=== PATIENT | male | born 1955 | race Caucasian/White ===

== ENCOUNTER 2023-03-11 16:33 | Inpatient (IN) | payer MEDICARE, BC, SELFPAY ==
--- NOTE | ~2023-03-11 | CT_ITS ---
EXAMINATION: CT brain wo con DATE: 03/11/2023 16:44 INDICATION: 3 hours of headache, right-sided weakness and whole body tremors. TECHNIQUE: Computed tomography (CT) of the head was performed without intravenous contrast. Sagittal and coronal reconstructions were performed. The mA was adjusted according to patient size. Iterative reconstruction technique was employed. The dose-length product was 605.33 mGy-cm. COMPARISON: None FINDINGS: No acute intracranial hemorrhage, acute infarction or abnormal extra axial fluid collection. There is mild scattered white matter hypoattenuation consistent with chronic small vessel ischemic disease. Ventricles are normal and symmetric. No mass/mass effect. The orbits, paranasal sinuses and mastoid a ir cells are normal. IMPRESSION: 1. No acute intracranial process. 2. Mild scattered white matter hypoattenuation consistent with chronic small vessel ischemic disease. Reviewed, dictated and finalized at location A. IMPRESSION: 1. No acute intracranial process. 2. Mild scattered white matter hypoattenuation consistent with chronic small ve ssel ischemic disease.
--- NOTE | ~2023-03-11 | CT_ITS ---
Non-contrast CT scan of the Abdomen and Pelvis Clinical indication: Hematuria Technique: 2.5 mm axial scans were obtained through the abdomen and pelvis without intravenous or or al contrast. Dose reduction technique was used on this scan by utilizing automated exposure control a nd iterative reconstruction technique. The dose-length product (DLP) was 1433.39 mGy-cm. Findings: Images through the lung bases reveal 6 mm noncalcified right lower lobe pulmonary nodule ( axial image 26). There is additional 4 mm noncalcified left lower lobe pulmonary nodule (axial image 22). Additional calcified right lower lobe granuloma present. There are probable cystic masses along the right heart border, most compatible with pericardial/epicardial cysts. There is excreted contrast within the renal collecting systems, ureters, and bladder, which limits ev aluation for stones. No ana hydronephrosis. There is diffuse fatty infiltration of liver. The spleen, pancreas, gallbladder, and left adrenal gla nd appear normal. 2 cm low-density right adrenal nodule is consistent with adenoma. There are atheros clerotic calcifications of the aorta. There is no evidence of bowel obstruction. Normal appendix. Images through the pelvis were performed. There is no evidence of ascites or lymphadenopathy. No pelv ic mass identified. Impression: Excreted contrast material is present in the renal collecting systems, ureters, and bladder, presumab ly from recent outside contrast enhanced exam, which limits evaluation for stones. No hydronephrosis. Diffuse fatty infiltration of liver. 2 cm right adrenal adenoma. Probable right-sided epicardial/pericardial cyst, as noted above. 6 mm right lower lobe pulmonary nodule, and 4 mm left lower lobe pulmonary nodule. According to Fleis chner Society criteria, for a low-risk patient, no further follow-up required. For a high-risk patien t, 12 month follow-up CT should be considered. Reviewed, dictated and finalized at location M. Impression: Excreted contrast material is present in the renal collecting systems, ureters, and bladder, presumably from recent outside contrast enhanced exam, which limi ts evaluation for stones. No hydronephrosis. Diffuse fatty infiltration of liver. 2 cm right adrenal adenoma. Probable right-sided epicardial/pericardial cyst, as noted above. 6 mm right lower lobe pulmonary nodule, and 4 mm left lower lobe pulmonary nodu le. According to Fleischner Society criteria, for a low-risk patient, no furthe r follow-up required. For a high-risk patient, 12 month follow-up CT should be considered.
--- NOTE | ~2023-03-11 | XR_ITS ---
XR chest 1V portable DATE: 03/11/2023 17:03 INDICATION: Sudden onset of mid chest pain, left arm pain TECHNIQUE: Portable upright AP chest on 03/07/2023 at 1659 hours COMPARISON: None FINDINGS: Normal heart size. No hilar or mediastinal enlargement. No pulmonary infiltrate or consolid ation, pleural effusion or pulmonary vascular congestion or pneumothorax. Degenerative spurring of the thoracic spine. IMPRESSION: No active cardiopulmonary disease Reviewed, dictated and finalized at location B.
--- NOTE | ~2023-03-11 | US_ITS ---
Procedure: Duplex Doppler examination of the bilateral carotids. Indication: Neurologic symptoms Technique: Real time, color-flow and pulse wave Doppler examination of the bilateral carotids was performed. Findings: Petty scale ultrasonography of the right neck demonstrated no significant plaque. There was demonstrat ion of normal color-flow and Doppler waveforms within the right common, internal and external carotid arteries. The peak systolic velocities in the right common, internal and external carotid arteries w ere demonstrated to be 128 cm/sec, 56 cm/sec and 133 cm/sec respectively. The right ICA/CCA ratio was 0.4.The proximal right internal carotid artery demonstrates 0% stenosis relative to the normal dista l artery lumen diameter. Petty scale sonography of the left neck demonstrated no significant plaque. There was demonstration of normal color-flow and wave forms within the left common, internal and external carotid arteries. The peak systolic velocities in the left common, internal and external carotid arteries were demonstrate d to be 135cm/sec, 77 cm/sec and 89 cm/sec respectively. The left ICA/CCA ratio was 0.6. The proximal left internal carotid artery demonstrates 0% stenosis relative to the normal distal artery lumen bev meter. There was antegrade flow demonstrated in the bilateral vertebral arteries. Impression: No hemodynamically significant stenosis of the bilateral internal carotid arteries. Antegrade flow in the bilateral vertebral arteries. Note: The methodology used is an indirect measurement validated against a direct method (such as the NASCET criteria) that compares diameters at the stenosis to the distal ICA. Reviewed, dictated and finalized at location . Impression: No hemodynamically significant stenosis of the bilateral internal carotid arter ies. Antegrade flow in the bilateral vertebral arteries. Note: The methodology used is an indirect measurement validated against a direct meth od (such as the NASCET criteria) that compares diameters at the stenosis to the distal ICA.
--- NOTE | ~2023-03-11 | CT_ITS ---
CT ANGIOGRAM NECK AND HEAD History: Altered mental status. Technique: Serial spiral axial images through the head and neck were obtained during arterial phase I V injection of 100 cc of Omnipaque 350. 3-D postprocessing and MIP images were then reconstructed on the remote workstation. Dose reduction technique was used on this scan by utilizing automated exposur e control and iterative reconstruction technique. The dose-length product (DLP) was 1244.02 mGy-cm. CTA neck findings: Bilateral vertebral arteries are patent.] Vertebral artery is relatively hypoplas tic. Bilateral common carotid, internal carotid, and external carotid arteries are patent. No large v essel occlusion. No stenosis or aneurysm. The proximal right internal carotid artery demonstrates 0% stenosis relative to the normal distal artery lumen diameter. The proximal left internal carotid chava ry demonstrates 0% stenosis relative to the normal distal artery lumen diameter. CTA head findings: Distal vertebral arteries, basilar artery, and posterior cerebral arteries are pat ent. Distal internal carotid arteries, middle cerebral arteries, and anterior cerebral arteries are p atent. No large vessel occlusion. No stenosis or aneurysm. Impression: No significant abnormality. Reviewed, dictated and finalized at location . Impression: No significant abnormality.
--- NOTE | ~2023-03-11 | MR_ITS ---
EXAMINATION: MR brain/brain stem wo/w con DATE: 03/12/2023 08:24 INDICATION: Stroke. Altered mental status. TECHNIQUE: Magnetic resonance imaging (MRI) of the brain and brainstem was performed without and with 20 mL Multihance intravenous contrast. Sequences included sagittal and axial T1-weighted SE, axial d iffusion-weighted FS SE, axial 3D SWAN, axial T2-weighted FLAIR, and axial T2-weighted FSE. Postcontr ast axial and coronal T1-weighted SE was obtained. Apparent diffusion coefficient (ADC) maps were cre ated. COMPARISON: Head CT and CT angiogram. 03/11/2023 FINDINGS: There are no areas of restricted diffusion to suggest acute infarction. No intracranial hemorrhage or abnormal intracranial mass lesion.There are a few scattered tiny foci of nonspecific increased T2-we ighted signal intensity in the cerebral white matter, predominantly involving the deep and periventri cular white matter which is within normal limits for age. There are no intraparenchymal signal abnorm alities seen on the other pulse sequences. The ventricles are symmetric and normal in size. There are no abnormal extra-axial fluid collections. Flow voids are seen in the cerebral arteries on the T2-we ighted sequences consistent with their expected patency. Left vertebral artery is dominant. Visualize d orbits and soft tissues are unremarkable. There are no areas of abnormal enhancement on the post co ntrast images. IMPRESSION: 1. Normal for age brain MR. No acute intracranial process. Reviewed, dictated and finalized at location A.
--- NOTE | 2023-03-11 16:36 | ECG_ITS ---
Measurements Intervals [place] Rate: 92 P: 19 CA: 185 QRS: -5 QRSD: 104 T: 57 QT: 323 QTc: 401 Interpretive Statements SINUS RHYTHM INCOMPLETE RIGHT BUNDLE BRANCH BLOCK BASELINE WANDER- V3 NO PREVIOUS ECG AVAILABLE FOR COMPARISON Electronically Signed On 03-11-2023 16:52:33 CDT by Usman Hall D.O.
[2023-03-11 16:38] LABS: Glucose Point of Care 121 mg/dl (65-105)
[2023-03-11 16:45] LABS: Basophils Absolute Auto 0.1 K/mm3 (0.0-0.1); Basophils Percent Auto 0.5 % (0.2-1.2); Eosinophils Absolute Auto 0.1 K/mm3 (0-0.3); Eosinophils Percent Auto 1.5 % (0-4.4); Hematocrit 39.6 % (42.0-52.0); Hemoglobin 14.2 g/dL (14.0-18.0); Immature Granulocyte Absolute 0.02 K/mm3 (0.00-0.031); Immature Granulocyte Percent A 0.2 % (0-0.5); Lymphocytes Absolute Auto 1.08 K/mm3 (0.9-3.2); Lymphocytes Percent Auto 11.4 % (18.3-44.2); Mean Corpuscular HGB Conc 35.9 g/dl (32-36); Mean Corpuscular Hemoglobin 30.9 pg (26-34); Mean Corpuscular Volume 86.3 fl (80-100); Mean Platelet Volume 9.1 fl (7.4-10.4); Monocytes Absolute Auto 0.9 K/mm3 (0.1-0.6); Monocytes Percent Auto 9.4 % (2.6-8.5); Neutrophils Absolute Auto 7.3 K/mm3 (1.3-6.7); Platelet Count Result 239 k/mm3 (150-375); Red Blood Count 4.59 M/mm3 (4.6-6.20); Red Cell Distribution Width 12.9 % (11.5-14.5); White Blood Count 9.5 K/mm3 (4.5-10.0)
[2023-03-11 16:49] VITALS: BP 169/77; PULSE 100; RESP 14; TEMP 38; O2SAT 100
[2023-03-11 16:56] LABS: Partial Thromboplastin Time 28.2 SECONDS (22.3-36.8); Prothrombin Time 13.4 Seconds (11.1-14.7)
--- NOTE | 2023-03-11 17:02 | ED.AMS ---
HPI - Altered Mental Status General Chief Complaint: Altered Mental Status Stated Complaint: altered mental status Time Seen by Provider: 03/11/23 16:44 History of Present Illness HPI narrative: 67-year-old male presented to the emergency department for evaluation of altered mental status. Patient reports he had a normal morning this morning and patient took his to the doctor's office at 2 PM. Patient was waiting in the waiting room when he became more agitated and needed to go wait in the car. went to go check on the patient approximately 4 PM after her doctor's appointment and patient was altered and agitated so she brought him to the emergency department for evaluation. Patient arrived as a code stroke. Upon arrival to the ED patient had no focal deficit no slurred speech but did have altered mental status and was very jittery. Patient denied any pain numbness or weakness. Patient states he was having some tingling in his left arm but denied any chest pain or shortness of breath. Patient does have a prior history of prostatectomy back in April Related Data Home Medications Medication Instructions Recorded Confirmed aspirin 81 mg capsule 81 mg PO DAILY 03/11/23 03/11/23 hydrochlorothiazide 25 mg tablet 25 mg PO DAILY 03/11/23 03/11/23 lisinopril 10 mg tablet 10 mg PO DAILY 03/11/23 03/11/23 niacin 50 mg tablet 50 mg PO DAILY 03/11/23 03/11/23 omega-3 fatty acids 1,000 mg PO DAILY 03/11/23 03/11/23 omeprazole 20 mg capsule,delayed 20 mg PO DAILY 03/11/23 03/11/23 release Allergies Allergy/AdvReac Type Severity Reaction Status Date / Time No Known Allergies Allergy Verified 03/11/23 16:47 Review of Systems Review of Systems: All systems reviewed & are unremarkable except as noted in HPI and below PMFSH Social History Social History Smoking status: Never smoker Exam Narrative: APPEARANCE: Well appearing, no pain, no distress, well-nourished. HEAD: normocephalic, atraumatic. EYES: PERRLA/EOMI, conjunctivae clear. NOSE: Normal no drainage EARS:TMS clear with good light reflex. THROAT: Pharynx clear, no exudate. NECK: Supple. No adenopathy, no masses. RESPIRATORY: Airway patent, respirations nonlabored. Clear to auscultation bilaterally, no rales, rhonchi, wheezing. CARDIOVASCULAR: Regular rate and rhythm without murmurs rubs or gallops. ABDOMINAL: Soft, nontender, nondistended, normal bowel sounds MUSCULOSKELETAL: Moves all extremities. Strength/ROM intact, No edema, No calf tenderness. NEURO: Patient was alert and oriented but was very jittery and did have some mild drift of the left arm. No other focal deficit. Patient had ataxia and decreased coordination in all extremities with no focal deficit SKIN: Warm, dry. Normal Color Course Course Emergency Course: 59-year-old male presented emergency department for evaluation of altered mental status and increased agitation and tenderness. Patient had no focal deficit on exam. Head CT was negative. CTA showed no acute or normality. UA was concerning for infection. Discussed case with neurology and they agree with the plan to work-up for metabolic or infectious etiology. Patient denies any neck or back pain and had no evidence of meningitis. Patient had abdominal CTs since he did have a history of kidney stones. No kidney stones or hydronephrosis were noted. I discussed the case with the hospitalist and patient was stable for admission. Prior to going to the floor patient's fever was improved and patient was closer to his baseline. Ataxia was resolved and patient had no drainage. Patient's fever was treated with Tylenol and ibuprofen p.o. and patient's UTI was treated with Rocephin. Blood cultures were ordered and urine culture is pending. Vital Signs Vital signs: Vital Signs Temperature 100.4 F H 03/11/23 16:49 Pulse Rate 100 03/11/23 16:49 Respiratory Rate 14 03/11/23 16:49 Blood Pressure 169/77 H 03/11/23 16:49 Puls
[2023-03-11 17:08] LABS: Troponin I < 0.012 ng/mL (0.000-0.034)
[2023-03-11 17:13] LABS: Potassium 3.4 mmol/L (3.4-5.0)
[2023-03-11 17:14] LABS: Alanine Aminotransferase 40 U/L (6-50); Albumin Level 4.7 g/dL (3.5-5.1); Alkaline Phosphatase 70 U/L (38-126); Anion Gap 8 mmol/L (8-16); Aspartate Amino Transferase 32 U/L (17-59); Bilirubin,Total 1.1 mg/dL (0.2-1.3); Blood Urea Nitrogen 20 mg/dL (9-20); Calcium 9.5 mg/dL (8.4-10.2); Carbon Dioxide 29 mmol/L (22-30); Chloride 101 mmol/L (98-107); Estimated Glomerular Filt Rate > 60; Glucose 124 mg/dL (65-110); Sodium 138 mmol/L (137-145)
[2023-03-11 17:35] VITALS: BP 167/78; PULSE 94; RESP 22; TEMP 38.6; O2SAT 100
[2023-03-11] MEDS: SODIUM CHLORIDE 0.9% IV 1,000 ML 999 ML IV CONT (17:37)
[2023-03-11] MEDS: ACETAMINOPHEN 500 MG TABLET 1000 MG PO (17:38)
[2023-03-11 17:57] LABS: Appearance Urine Clear (Clear); Bacteria Urine 3+ /hpf; Bilirubin Urine Negative (Negative); Blood Urine 2+ (Negative); Color Urine Yellow (Yellow); Glucose Urine UA Negative (Negative); Ketones Urine Negative (Negative); Leukocyte Esterase Ur 1+ LEU/UL (Negative); Nitrate Urine Negative (Negative); Non Pathogenic Casts 0-2; Protein Urine 1+ mg/dL (Negative); RBC Urine 21-50 /hpf (0-2); Specific Grav Ur 1.019 (1.001-1.035); Squamous Epithelial Cell Urine None seen /hpf (Few); WBC Urine 21-50 /hpf; pH Urine 8.5 (5.0-9.0)
[2023-03-11 18:32] LABS: Add Urine Microscopic? YES
[2023-03-11 18:55] VITALS: BP 155/83; PULSE 85; RESP 20; O2SAT 99
[2023-03-11 19:00] VITALS: TEMP 37.9
[2023-03-11] MEDS: IBUPROFEN 400 MG TABLET 800 MG PO (19:00)
[2023-03-11 19:33] LABS: Lactic Acid Reflex 1.2 mmol/L (0.7-2.0); Magnesium 1.6 mg/dL (1.6-2.3)
[2023-03-11 20:41] LABS: Thyroid Stimulating Hormone Reflex 0.995 uIU/mL (0.465-4.68)
[2023-03-11 20:43] LABS: Procalcitonin 0.1 ng/mL
[2023-03-11 22:00] VITALS: BP 155/71; PULSE 81; RESP 16; TEMP 37.1; O2SAT 97
[2023-03-12] VITALS (11 sets, daily range): BP systolic 124–161; BP diastolic 47–69; PULSE 67–88; RESP 16–18; TEMP 36.8–38.4; O2SAT 97–100
--- NOTE | 2023-03-12 00:52 | PM.IMHP ---
H&P: HPI History of Present Illness Date/Time: 03/11/23 19:30 Chief Complaint: Weakness and confusion. Narrative: This is a pleasant 67-year-old male with history of prostate cancer status post prostatectomy, kidney stones, hypertension, and dyslipidemia who presented to the emergency department via private vehicle for evaluation of weakness and confusion. The patient provides the following history. This morning he spent a couple of hours pulling weeds in the yard. Not long thereafter he started to feel ?rough? with generalized malaise and he drank some water since he had been working in the heat. He then drove his to a doctor's appointment in [place] and she indicates that he seemed to be a bit agitated and irritable while in the waiting room. She was called back for her appointment and at that time the patient started to feel hot and weak so he went to the car and sat in the air conditioning. When she returned to the car, the patient seemed confused and he reported that he felt weak when walking, more so in the left leg in addition to some mild tingling in the left arm. He was triaged as a code stroke on arrival to the ER and brain CT did not show any acute findings. He was febrile on arrival with a temperature of 101.4? F. Lactic acid, CMP, and CBC were unremarkable. Urine was positive for 1+ leukocyte esterase, 21 to 50 wbc's, and 3+ bacteria. With further questioning he admits to having dysuria the last couple of days as well as a decreased appetite. He was started on ceftriaxone and he is being admitted in this setting for further treatment and evaluation. Currently he reports feeling much better. He denies headache, neck ache, sinus congestion, sore throat, cough, chest pain, palpitations, sensations of racing heart, vomiting, and diarrhea. He also denies vertigo, visual changes, facial droop, difficulty speaking and swallowing, current paresthesias, and focal weakness. Review of Systems Review of Systems: Twelve systems were reviewed and are negative except for as per HPI. [facility] Past Medical History Medical History (Updated 03/12/23 @ 13:33 by Etta Ramirez PA-C) Dyslipidemia Hypertension Kidney stones Obstructive sleep apnea Prostate cancer Surgical History Surgical History (Updated 03/12/23 @ 13:33 by Etta Ramirez PA-C) History of prostatectomy Family History Family History Other Hypertension Social History Social History (Updated 03/12/23 @ 13:34 by Etta Ramirze PA-C) Social History: Surrogate medical decision maker: Chris Akins, spouse. Code status: Full code. Smoking status: Never smoker Living arrangements: with family Occupation/Education: retired Meds Home Medications and Allergies Home Medications Medication Instructions Recorded Confirmed Type aspirin 81 mg capsule 81 mg PO DAILY 03/11/23 03/11/23 History hydrochlorothiazide 25 mg tablet 25 mg PO DAILY 03/11/23 03/11/23 History lisinopril 10 mg tablet 10 mg PO DAILY 03/11/23 03/11/23 History niacin 50 mg tablet 50 mg PO DAILY 03/11/23 03/11/23 History omega-3 fatty acids 1,000 mg PO DAILY 03/11/23 03/11/23 History omeprazole 20 mg capsule,delayed 20 mg PO DAILY 03/11/23 03/11/23 History release Allergies Allergy/AdvReac Type Severity Reaction Status Date / Time No Known Allergies Allergy Verified 03/11/23 16:47 Vital Signs Vital Signs - 24 hr 03/11/23 16:49 03/11/23 17:35 03/11/23 18:55 Temperature 100.4 F H 101.4 F H Pulse Rate 100 94 85 Respiratory Rate 14 22 H 20 Blood Pressure 169/77 H 167/78 H 155/83 H Pulse Oximetry 100 100 99 03/11/23 19:00 03/11/23 22:00 Temperature 100.3 F H 98.7 F Pulse Rate 81 Respiratory Rate 16 Blood Pressure 155/71 H Pulse Oximetry 97 Exam Narrative: General: Mildly ill-appearing gentleman in the semi-[place] position in bed. Weight: 112.4 kg. HEENT: PERREstrada, EOMI. Sc
--- NOTE | 2023-03-12 00:58 | ECHO_ITS ---
Patient Info Name: Hamilton Yanez Age: 67 years : 1955 Gender: Male Ht: 72 in Wt: 247 lbs BSA: 2.42 m2 HR: 71 bpm BP: 155 / 71 mmHg Heart Rhythm: Sinus Rhythm Technical Quality: Good Exam Date: 03/12/2023 11:34 AM Exam Location: [facility] Patient Status: Inpatient Admit Date: 03/12/2023 Staff Ordering Physician: Etta Ramirez PA-C Senior Online Marketing Manager: Adama Salazar RDCS Attending Provider: Wyatt Lomeli MD Referring Physician: Ashley RINCON; Exam Type: CA echo doppler color flow Study Info Indications - neurologic symptoms/htn Complete two-dimensional, color flow and Doppler transthoracic echocardiogram is performed. Summary 1. Complete two-dimensional, color flow and Doppler transthoracic echocardiogram is performed. 2. Left ventricular chamber dimension is normal. 3. Left ventricular systolic function is normal, estimated at 65-70%. 4. There is mildly increased left ventricular wall thickness. 5. The left ventricular diastolic function is grade I diastolic dysfunction. 6. Right ventricular systolic function is normal. 7. There is mild mitral valve regurgitation. 8. There is mild tricuspid valve regurgitation. Left Ventricle Left ventricular chamber dimension is normal. Left ventricular systolic function is normal, estimated at 65-70%. There is mildly increased left ventricular wall thickness. The left ventricular diastolic function is grade I diastolic dysfunction. Right Ventricle Right ventricular chamber dimension is normal. Right ventricular systolic function is normal. Left Atria Left atrial chamber dimension is normal. Right Atria Right atrial chamber dimension is normal. Atrial Septum Interatrial septum not well visualized. Aortic Valve The aortic valve is trileaflet. There is mild aortic valve sclerosis. There is no aortic valve stenosis. There is no aortic valve regurgitation. Pulmonic Valve The pulmonic valve is not well visualized. There is no pulmonic regurgitation. Mitral Valve There is mild mitral valve regurgitation. The mitral valve annulus is mildly calcified. Tricuspid Valve There is mild tricuspid valve regurgitation. Pericardium/Pleural The pericardium appears epicardial fat pad. There is no pericardial effusion. Inferior Vena Cava Inferior vena cava is not well visualized. Aorta The aortic root size at the sinus of Valsalva is normal. Left Ventricular Outflow Tract Name Value Normal LVOT 2D LVOT Diameter 2.0 cm LVOT Doppler LVOT Peak Gradient 4 mmHg LVOT Mean Gradient 2 mmHg LVOT VTI 22 cm LVOT VTI/AV VTI Ratio 0.9 LVOT Stroke Volume 72 ml LVOT CO 5.6 l/min LVOT CI 2.3 l/min/m2 Pulmonic Valve Name Value Normal RVOT Doppler RVOT Peak Gradient
[2023-03-12] MEDS: SODIUM CHLORIDE 0.9% IV 1,000 ML 100 ML IV CONT (02:29)
[2023-03-12 06:04] LABS: Hematocrit 38.2 % (42.0-52.0); Hemoglobin 13.3 g/dL (14.0-18.0); Mean Corpuscular HGB Conc 34.8 g/dl (32-36); Mean Corpuscular Hemoglobin 30.8 pg (26-34); Mean Corpuscular Volume 88.4 fl (80-100); Mean Platelet Volume 9.4 fl (7.4-10.4); Platelet Count Result 209 k/mm3 (150-375); Red Blood Count 4.32 M/mm3 (4.6-6.20); Red Cell Distribution Width 12.8 % (11.5-14.5)
[2023-03-12 06:09] LABS: Anion Gap 9 mmol/L (8-16); Blood Urea Nitrogen 19 mg/dL (9-20); Calcium 8.9 mg/dL (8.4-10.2); Carbon Dioxide 29 mmol/L (22-30); Chloride 102 mmol/L (98-107); Estimated CRCL calculation 81 ml/min; Estimated Glomerular Filt Rate > 60; Glucose 131 mg/dL (65-110); Potassium 3.2 mmol/L (3.4-5.0); Sodium 140 mmol/L (137-145)
[2023-03-12] MEDS: ASPIRIN 81 MG CHEWABLE TABLET PO (09:50)
[2023-03-12] MEDS: POTASSIUM CHLORIDE 20 MEQ PACKET (FOR LIQUID) 40 MEQ PO (09:50)
[2023-03-12] MEDS: PANTOPRAZOLE 40 MG TABLET PO (09:51)
[2023-03-12] MEDS: lisinopriL 10 MG TABLET PO (09:51)
[2023-03-12] MEDS: OMEGA 3 POLYUNSAT FATTY ACIDS 1 GM CAP PO (09:51)
--- NOTE | 2023-03-12 10:24 | PCOTNOTE ---
Attempted to see pt. for occupational therapy evaluation. Pt. and family currently conversing with hospitalist regarding plan of care. Unable to see pt. at this time. Nursing aware. Following.
--- NOTE | 2023-03-12 11:17 | WPDNEURCNPN ---
Assessment and Plan Assessment and plan (1) Confusion: Code(s): R41.0 - Disorientation, unspecified Status: Acute Plan 1. Considering the history of left-sided neuro symptomatology will obtain the MRI of the brain in addition to echocardiogram and Doppler study of the carotid and further recommendation accordingly at present the possible diagnosis of TIA Also will need to have the EEG. Consult date: 03/12/23 HPI: Hamilton Yanez is a 67 year old male Has been admitted to the hospital through the emergency room for the complaints of the change in the mental status. As per the information available on initial visit in the ER he was normal in the morning when he took his to the doctor's office And around 2:00 p.m. while he was waiting in the waiting room, he became extremely agitated and had to go and weight in his car, went to check on him approximately 4:00 p.m. when she found the patient agitated and with obvious change in mental status ,he was brought to the emergency room for evaluation with the code stroke and on initial evaluation he was not found to have any focal motor deficit or difficulties in his speech but extremely jittery ,did not complain of any weakness or numbness, he said that he had left upper extremity weakness but he gave no history of chest pain. he had been taking aspirin 81 mg daily with hydrochlorothiazide 25 mg daily lisinopril 10 mg daily, on initial evaluation in the emergency room CT scan of the head was negative with a bleed or space-occupying lesion, CTA revealed no vascular involvement, he was not found to have any renal pathology on CT scan of the abdomen as well, routine vital signs were normal except with blood pressure being 169/77, CBC was normal so as the BMP he was started on antibiotic, on evaluation he was found to have 2cm right adrenal adenoma and 6mm right lower lobe pulmonary nodule 4mm left lower lobe pulmonary nodule PMF Social History Social History Smoking status: Never smoker Meds Home Medications and Allergies Home Medications Medication Instructions Recorded Confirmed Type aspirin 81 mg capsule 81 mg PO DAILY 03/11/23 03/11/23 History hydrochlorothiazide 25 mg tablet 25 mg PO DAILY 03/11/23 03/11/23 History lisinopril 10 mg tablet 10 mg PO DAILY 03/11/23 03/11/23 History niacin 50 mg tablet 50 mg PO DAILY 03/11/23 03/11/23 History omega-3 fatty acids 1,000 mg PO DAILY 03/11/23 03/11/23 History omeprazole 20 mg capsule,delayed 20 mg PO DAILY 03/11/23 03/11/23 History release Allergies Allergy/AdvReac Type Severity Reaction Status Date / Time No Known Allergies Allergy Verified 03/11/23 16:47 Vital Signs Vital Signs - 24 hr 03/11/23 16:49 03/11/23 17:35 03/11/23 18:55 Temperature 38.0 C H 38.6 C H Pulse Rate 100 94 85 Respiratory Rate 14 22 H 20 Blood Pressure 169/77 H 167/78 H 155/83 H Pulse Oximetry 100 100 99 Oxygen Delivery 03/11/23 19:00 03/11/23 22:00 03/12/23 00:00 Temperature 37.9 C H 37.1 C Pulse Rate 81 67 Respiratory Rate 16 Blood Pressure 155/71 H Pulse Oximetry 97 Oxygen Delivery 03/11/23 20:30 03/12/23 04:00 03/12/23 06:00 Temperature 36.8 C Pulse Rate 71 79 Respiratory Rate 16 Blood Pressure 161/69 H Pulse Oximetry 100 Oxygen Delivery Room Air 03/12/23 09:50 03/12/23 10:43 Temperature Pulse Rate 88 Respiratory Rate Blood Pressure Pulse Oximetry Oxygen Delivery Room Air Results Labs 03/12/23 05:24 03/12/23 05:25 Labs: Short CBC 03/11/23 03/12/23 Range/Units 16:39 05:24 WBC 9.5 9.0 (4.5-10.0) K/mm3 Hgb 14.2 13.3 L (14.0-18.0) g/dL Hct 39.6 L 38.2 L (42.0-52.0) % Plt Count 239 209 (150-375) k/mm3 BMP 03/11/23 03/12/23 16:39 05:25 Sodium 138 140 Potassium 3.4 3.2 L Chloride 101 102 Carbon Dioxide 29 29 BUN 20 19 Creatinine 1.10 1.00 Glucose 124 H 131 H Calcium 9.5
--- NOTE | 2023-03-12 12:02 | PM.IMPN ---
Progress Note: A&P Assessment and Plan (1) Neurological symptoms: Code(s): R29.90 - Unspecified symptoms and signs involving the nervous system Status: Acute Assessment and Plan: The patient presented to the emergency department for evaluation of confusion. On arrival to the ED he mentions some tingling in the left arm weakness in the left leg and he was triaged as a code stroke. CTA of the head and neck and head CT did not show any acute findings. Continue neurologic checks q.4 hours. Brain MRI negative for acute intracranial process. He will be monitor on telemetry. Echocardiogram Ordered Carotid Doppler revealing no significant stenosis of the bilateral internal carotid arteries, antegrade flow in the bilateral vertebral arteries. (2) Urinary tract infection: Code(s): N39.0 - Urinary tract infection, site not specified Status: Acute Assessment and Plan: In the ED he spiked a temperature of 101.4? and it appears that he has urinary tract infection. Urine was positive for 1+ leukocyte esterase, 21 to 50 wbc's, and 3+ bacteria. He has been started on ceftriaxone. Blood and urine cultures are pending. (3) Confusion: Code(s): R41.0 - Disorientation, unspecified Status: Acute Assessment and Plan: Resolved Patient is no longer confused although he continues to have jerky movements as well as numbness and tingling that comes and goes on the left side of his body. Subjective Date/time seen: 03/12/23 12:02 Interval history: Patient in bed with and daughter at bedside. Patient is very restless although he answers my questions appropriately. He states that he has body aches from head to toe and is constantly fidgeting /moving around in the bed and he states that he has no control of this. He is very jerky movements. No family history of any neurological disorders such as MS ALS, seizure disorder Parkinson's. Review of Systems Review of Systems: All systems reviewed & are unremarkable except as noted in HPI and below Exam Narrative: GENERAL: Comfortable, no acute distress HENMT: moist mucous membranes EYES: EOM intact b/l NECK: no lymphadenopathy RESPIRATORY: clear to auscultation CARDIO: RRR GI: soft, nontender, bowel sounds present SKIN: no rashes EXTREMITIES: no edema, redness or tenderness NEURO: Upper and lower extremity strength 5/5, no past pointing present, no pronator drift, no facial asymmetry. Jerky movements and needed redirecting frequently. Objective Data Vital Signs Vital Signs: Vital Signs - 24 hr 03/11/23 16:49 03/11/23 17:35 03/11/23 18:55 Temperature 100.4 F H 101.4 F H Pulse Rate 100 94 85 Respiratory Rate 14 22 H 20 Blood Pressure 169/77 H 167/78 H 155/83 H Pulse Oximetry 100 100 99 Oxygen Delivery 03/11/23 19:00 03/11/23 22:00 03/12/23 00:00 Temperature 100.3 F H 98.7 F Pulse Rate 81 67 Respiratory Rate 16 Blood Pressure 155/71 H Pulse Oximetry 97 Oxygen Delivery 03/11/23 20:30 03/12/23 04:00 03/12/23 06:00 Temperature 98.2 F Pulse Rate 71 79 Respiratory Rate 16 Blood Pressure 161/69 H Pulse Oximetry 100 Oxygen Delivery Room Air 03/12/23 09:50 03/12/23 10:43 03/12/23 11:07 Temperature Pulse Rate 88 Respiratory Rate Blood Pressure Pulse Oximetry Oxygen Delivery Room Air Room Air Intake/Output Intake/Output: Intake & Output 03/09/23 03/10/23 03/11/23 03/12/23 23:59 23:59 23:59 23:59 Intake Total 1050 120 Output Total 450 Balance 1050 -330 Meds/Results Medications: Active Medications Generic Name Dose Route Start Last Admin Trade Name Freq PRN Reason Stop Dose Admin Acetaminophen 650 mg 03/12/23 00:58 Acetaminophen 325 Mg Tablet PO Q6H PRN Mild Pain (1-3) or Fever Aspirin 81 mg 03/12/23 08:00 03/12/23 09:50 Aspirin 81 Mg Chewable Tablet PO 81 mg DAILY@0800 [place] Administration Fish Oil 1
[2023-03-12] MEDS: LORazepam INJ (*CRX) 2 MG/ML VIAL 0.5 MG IV PUSH (12:42)
[2023-03-12] MEDS: NIACIN 50 MG TABLET PO (15:59)
[2023-03-12] MEDS: ACETAMINOPHEN 325 MG TABLET 650 MG PO (15:59)
[2023-03-12] MEDS: DOXYCYCLINE 100 MG/NS 100 ML 100 MG/100 ML BAG IVPB (19:50)
[2023-03-12 21:14] LABS: Glucose Point of Care 181 mg/dl (65-105)
[2023-03-13] VITALS (8 sets, daily range): BP systolic 135–165; BP diastolic 64–83; PULSE 77–90; RESP 16–24; TEMP 36.5–37.7; O2SAT 97–99
[2023-03-13] MEDS: LORazepam INJ (*CRX) 2 MG/ML VIAL 0.5 MG IV PUSH (03:43)
[2023-03-13 06:06] LABS: Basophils Percent Auto 0.4 % (0.2-1.2); Eosinophils Absolute Auto 0.1 K/mm3 (0-0.3); Eosinophils Percent Auto 0.7 % (0-4.4); Hematocrit 34.8 % (42.0-52.0); Hemoglobin 12.4 g/dL (14.0-18.0); Immature Granulocyte Absolute 0.03 K/mm3 (0.00-0.031); Immature Granulocyte Percent A 0.4 % (0-0.5); Lymphocytes Absolute Auto 0.87 K/mm3 (0.9-3.2); Lymphocytes Percent Auto 11.7 % (18.3-44.2); Mean Corpuscular HGB Conc 35.6 g/dl (32-36); Mean Corpuscular Hemoglobin 30.8 pg (26-34); Mean Corpuscular Volume 86.4 fl (80-100); Mean Platelet Volume 9.4 fl (7.4-10.4); Monocytes Absolute Auto 0.8 K/mm3 (0.1-0.6); Monocytes Percent Auto 10.4 % (2.6-8.5); Neutrophils Absolute Auto 5.7 K/mm3 (1.3-6.7); Neutrophils Percent Auto 76.4 % (45.5-73.1); Platelet Count Result 193 k/mm3 (150-375); Red Blood Count 4.03 M/mm3 (4.6-6.20); Red Cell Distribution Width 12.8 % (11.5-14.5); White Blood Count 7.4 K/mm3 (4.5-10.0)
[2023-03-13 06:22] LABS: Alanine Aminotransferase 27 U/L (6-50); Albumin Level 3.8 g/dL (3.5-5.1); Alkaline Phosphatase 48 U/L (38-126); Anion Gap 6 mmol/L (8-16); Aspartate Amino Transferase 25 U/L (17-59); Blood Urea Nitrogen 22 mg/dL (9-20); Calcium 8.8 mg/dL (8.4-10.2); Carbon Dioxide 26 mmol/L (22-30); Chloride 103 mmol/L (98-107); Creatine Kinase 72 U/L (55-170); Estimated CRCL calculation 89 ml/min; Estimated Glomerular Filt Rate > 60; Glucose 145 mg/dL (65-110); Lipase 115 U/L (23-300); Potassium 3.4 mmol/L (3.4-5.0); Sodium 135 mmol/L (137-145)
[2023-03-13 07:45] LABS: Glucose Point of Care 149 mg/dl (65-105)
--- NOTE | 2023-03-13 08:33 | PM.IMPN ---
Progress Note: A&P Assessment and Plan (1) Neurological symptoms: Code(s): R29.90 - Unspecified symptoms and signs involving the nervous system Status: Acute Assessment and Plan: The patient presented to the emergency department for evaluation of confusion. On arrival to the ED he mentions some tingling in the left arm weakness in the left leg and he was triaged as a code stroke. CTA of the head and neck and head CT did not show any acute findings. Continue neurologic checks q.4 hours. Brain MRI negative for acute intracranial process. He will be monitored on telemetry. Echocardiogram Ordered Summary ? 1. Complete two-dimensional, color flow and Doppler transthoracic echocardiogram is performed. ? 2. Left ventricular chamber dimension is normal. ? 3. Left ventricular systolic function is normal, estimated at 65-70%. ? 4. There is mildly increased left ventricular wall thickness. ? 5. The left ventricular diastolic function is grade I diastolic dysfunction. ? 6. Right ventricular systolic function is normal. ? 7. There is mild mitral valve regurgitation. ? 8. There is mild tricuspid valve regurgitation. Carotid Doppler revealing no significant stenosis of the bilateral internal carotid arteries, antegrade flow in the bilateral vertebral arteries. (2) Urinary tract infection: Code(s): N39.0 - Urinary tract infection, site not specified Status: Acute Assessment and Plan: In the ED he spiked a temperature of 101.4? and it appears that he has urinary tract infection. Urine was positive for 1+ leukocyte esterase, 21 to 50 wbc's, and 3+ bacteria. He has been started on ceftriaxone. Urine culture + for E-coli Blood cultures with NGTD (3) Confusion: Code(s): R41.0 - Disorientation, unspecified Status: Acute Assessment and Plan: Resolved -ataxic movement has resolved today after starting doxycycline. -EEG normal Plan If no fevers overnight and patients symptoms continue to improve then likely d/c home tomorrow. Serologies will take a week to result. Subjective Date/time seen: 03/13/23 08:33 Interval history: HPI obtained from chart: This is a pleasant 67-year-old male with history of prostate cancer status post prostatectomy, kidney stones, hypertension, and dyslipidemia who presented to the emergency department via private vehicle for evaluation of weakness and confusion.? The patient provides the following history. This morning he spent a couple of hours pulling weeds in the yard. Not long thereafter he started to feel ?rough? with generalized malaise and he drank some water since he had been working in the heat. He then drove his to a doctor's appointment in [place] and she indicates that he seemed to be a bit agitated and irritable while in the waiting room. She was called back for her appointment and at that time the patient started to feel hot and weak so he went to the car and sat in the air conditioning. When she returned to the car, the patient seemed confused and he reported that he felt weak when walking, more so in the left leg in addition to some mild tingling in the left arm. He was triaged as a code stroke on arrival to the ER and brain CT did not show any acute findings. He was febrile on arrival with a temperature of 101.4? F. Lactic acid, CMP, and CBC were unremarkable. Urine was positive for 1+ leukocyte esterase, 21 to 50 wbc's, and 3+ bacteria.? With further questioning he admits to having dysuria the last couple of days as well as a decreased appetite. He was started on ceftriaxone and he is being admitted in this setting for further treatment and evaluation. Currently he reports feeling much better. He denies headache, neck ache, sinus congestion, sore throat, cough, chest pain, palpitations, sensations of racing heart, vomiting, and diarrhea. He also denies vertigo, visual changes, facial droop, difficulty speaking and swallowing, cur
[2023-03-13] MEDS: PANTOPRAZOLE 40 MG TABLET PO (10:02)
[2023-03-13] MEDS: OMEGA 3 POLYUNSAT FATTY ACIDS 1 GM CAP PO (10:02)
[2023-03-13] MEDS: lisinopriL 10 MG TABLET PO (10:02)
[2023-03-13] MEDS: NIACIN 50 MG TABLET PO (10:02)
[2023-03-13] MEDS: ASPIRIN 81 MG CHEWABLE TABLET PO (10:02)
[2023-03-13] MEDS: DOXYCYCLINE 100 MG/NS 100 ML 100 MG/100 ML BAG IVPB ×2 (10:05→21:23)
--- NOTE | 2023-03-13 10:30 | WPDNEUROLOGY ---
Neurology EEG Report General Information Date of Study: 03/13/23 TEST eeg DIAGNOSIS History of confusion CONDITION OF RECORDING awake drowsy and sleep EEG NUMBER [id number] CLINICAL HISTORY patient was brought into the hospital with fever, confusion, agitation and weakness. EEG DESCRIPTION basic resting occipital frequency consists of well-organized low to medium voltage 9 to 11 hertz per 2nd alpha admixed with small amount of low-voltage 15 to 18 hertz per 2nd beta. Low-voltage beta activity seen diffusely admixed with waxing and waning posterior alpha rhythm during drowsiness. Bilateral symmetrical sleep activity seen during sleep with mixture of beta theta and alpha activity. Intermittent regular EKG artifact is also noted ,hyperventilation not done. Photic stimulation not done. Non paroxysmal. Nonfocal. Nonlateralizing. IMPRESSION Normal record
--- NOTE | 2023-03-13 11:56 | WPDNEUROPN ---
Subjective Date/time seen: 03/13/23 11:56 Interval history: follow-up for the admission with the complaints of disorientation and confusion, it generally nonfocal neurological examination, evaluation of continued down document negative x-ray of the chest, negative CT scan of the head, negative CTA of the head and neck, normal MRI of the brain, normal Doppler study of the carotids and normal EEG without any evidence of focal or diffuse slow activity and also without evidence of any paroxysmal discharge, on exam today patient is awake alert cooperative in no obvious acute distress with no focal motor deficit the question has been raised whether patient has had the encephalitis. Objective Data Vital Signs Vital Signs: Vital Signs - 24 hr 03/12/23 14:58 03/12/23 15:59 03/12/23 17:04 Temperature 38.4 C H 38.4 C H 37.7 C H Pulse Rate 85 Respiratory Rate 18 Blood Pressure 145/63 H Pulse Oximetry 99 Oxygen Delivery 03/12/23 16:59 03/12/23 16:00 03/12/23 20:00 Temperature 37.7 C H Pulse Rate 81 81 Respiratory Rate 18 Blood Pressure Pulse Oximetry 99 Oxygen Delivery Room Air 03/12/23 22:00 03/12/23 20:00 03/13/23 00:00 Temperature 37.1 C Pulse Rate 84 87 78 Respiratory Rate 16 Blood Pressure 124/47 L Pulse Oximetry 97 Oxygen Delivery 03/12/23 22:30 03/13/23 04:00 03/13/23 06:00 Temperature 37.7 C H Pulse Rate 80 84 Respiratory Rate 16 Blood Pressure 135/64 Pulse Oximetry 98 Oxygen Delivery CPAP 03/13/23 08:00 Temperature 36.8 C Pulse Rate 82 Respiratory Rate 22 H Blood Pressure 139/77 Pulse Oximetry 97 Oxygen Delivery Intake/Output Intake/Output: Intake & Output 03/10/23 03/11/23 03/12/23 03/13/23 23:59 23:59 23:59 23:59 Intake Total 1050 1180 570 Output Total 450 Balance 1050 730 570 Meds/Results Medications: Active Medications Generic Name Dose Route Start Last Admin Trade Name Freq PRN Reason Stop Dose Admin Acetaminophen 650 mg 03/12/23 00:58 03/12/23 15:59 Acetaminophen 325 Mg Tablet PO 650 mg Q6H PRN Administration Mild Pain (1-3) or Fever Aspirin 81 mg 03/12/23 08:00 03/13/23 10:02 Aspirin 81 Mg Chewable Tablet PO 81 mg DAILY@0800 [place] Administration Fish Oil 1 gm 03/12/23 09:00 03/13/23 10:02 [place] 3 Polyunsat Fatty Acids 1 Gm Cap PO 1 gm QAM [place] Administration Ceftriaxone Sodium 1 gm in 50 mls @ 100 mls/hr 03/12/23 19:00 03/12/23 19:20 Rocephin 1 Gm/Ns 50 Ml IVPB Infused Q24H [place] Infusion Doxycycline Hyclate 100 mg in 100 mls @ 100 mls/hr 03/12/23 21:00 03/12/23 20:50 Vibramycin 100 Mg/Ns 100 Ml IVPB Infused Q12HR [place] Infusion Lisinopril 10 mg 03/12/23 09:00 03/13/23 10:02 Lisinopril 10 Mg Tablet PO 10 mg DAILY [place] Administration Lorazepam 0.5 mg 03/12/23 15:50 03/13/23 03:43 Lorazepam Inj (*Crx) 2 Mg/Ml Vial IV PUSH 0.5 mg Q6H PRN Administration Anxiety Niacin 50 mg 03/12/23 09:00 03/13/23 10:02 Niacin 50 Mg Tablet PO 50 mg DAILY [place] Administration Pantoprazole Sodium 40 mg 03/12/23 09:00 03/13/23 10:02 Pantoprazole 40 Mg Tablet PO 40 mg QAM [place] Administration Perflutren Lipid Microsphere 0 ml 03/12/23 00:58 Perflutren Lipid Microspheres 1.5 Ml Vial Diluted To 10 Ml Total Volume IV PUSH 03/14/23 00:58 ONCE PRN adequate visualization Protocol Radiology Results: ITS Impressions Head CT 03/11/23 16:44 IMPRESSION: 1. No acute intracranial process. 2. Mild scattered white matter hypoattenuation consistent with chronic small vessel ischemic disease. Chest X-Ray 03/11/23 17:04 IMPRESSION: No active cardiopulmonary disease Head/Neck CTA 03/11/23 17:57 Impression: No significant abnormality. Abdomen/Pelvis CT 03/11/23 19:31 Impression: Excreted contrast material is present in the renal collecting systems, ureters, and bladder, presumably from recent ou
[2023-03-13] MEDS: cefTRIAXone 2 GM/NS 100 ML 2 GM/100 ML BAG IVPB (17:42)
[2023-03-14] VITALS: PULSE 72
[2023-03-14 04:00] VITALS: PULSE 83
[2023-03-14 06:00] VITALS: BP 156/81; PULSE 77; RESP 16; TEMP 36.4; O2SAT 97
[2023-03-14 07:22] LABS: Basophils Absolute Auto 0.1 K/mm3 (0.0-0.1); Basophils Percent Auto 0.9 % (0.2-1.2); Eosinophils Absolute Auto 0.2 K/mm3 (0-0.3); Eosinophils Percent Auto 2.3 % (0-4.4); Hematocrit 37.6 % (42.0-52.0); Hemoglobin 13.1 g/dL (14.0-18.0); Immature Granulocyte Absolute 0.02 K/mm3 (0.00-0.031); Immature Granulocyte Percent A 0.3 % (0-0.5); Lymphocytes Absolute Auto 1.67 K/mm3 (0.9-3.2); Lymphocytes Percent Auto 24.4 % (18.3-44.2); Mean Corpuscular HGB Conc 34.8 g/dl (32-36); Mean Corpuscular Hemoglobin 30.2 pg (26-34); Mean Corpuscular Volume 86.6 fl (80-100); Mean Platelet Volume 9.2 fl (7.4-10.4); Monocytes Absolute Auto 0.7 K/mm3 (0.1-0.6); Monocytes Percent Auto 10.7 % (2.6-8.5); Neutrophils Absolute Auto 4.2 K/mm3 (1.3-6.7); Neutrophils Percent Auto 61.4 % (45.5-73.1); Platelet Count Result 239 k/mm3 (150-375); Red Blood Count 4.34 M/mm3 (4.6-6.20); Red Cell Distribution Width 12.8 % (11.5-14.5); White Blood Count 6.8 K/mm3 (4.5-10.0)
[2023-03-14 07:42] LABS: Alanine Aminotransferase 28 U/L (6-50); Albumin Level 3.9 g/dL (3.5-5.1); Alkaline Phosphatase 51 U/L (38-126); Anion Gap 10 mmol/L (8-16); Aspartate Amino Transferase 28 U/L (17-59); Bilirubin,Total 0.7 mg/dL (0.2-1.3); Blood Urea Nitrogen 18 mg/dL (9-20); Carbon Dioxide 25 mmol/L (22-30); Chloride 104 mmol/L (98-107); Estimated CRCL calculation 81 ml/min; Estimated Glomerular Filt Rate > 60; Glucose 129 mg/dL (65-110); Potassium 3.5 mmol/L (3.4-5.0); Sodium 139 mmol/L (137-145)
[2023-03-14 08:02] VITALS: PULSE 76
[2023-03-14] MEDS: PANTOPRAZOLE 40 MG TABLET PO (09:16)
[2023-03-14] MEDS: DOXYCYCLINE 100 MG/NS 100 ML 100 MG/100 ML BAG IVPB (09:16)
[2023-03-14] MEDS: NIACIN 50 MG TABLET PO (09:16)
[2023-03-14] MEDS: OMEGA 3 POLYUNSAT FATTY ACIDS 1 GM CAP PO (09:16)
[2023-03-14] MEDS: lisinopriL 10 MG TABLET PO (09:16)
[2023-03-14] MEDS: ASPIRIN 81 MG CHEWABLE TABLET PO (09:16)
[2023-03-14 10:19] VITALS: O2SAT 98
[2023-03-14] MEDS: AMOXICILLIN/CLAVULANATE K 875-125 MG TAB 1 TABLET PO (10:21)
[2023-03-14] MEDS: hydroCHLOROthiazide 25 MG TABLET PO (10:28)
--- NOTE | 2023-03-14 11:16 | PM.DS ---
DS: Admitting Diagnosis Discharge Date March 14 Admitting Diagnosis Acute UTI DS: Discharge Diagnosis Discharge Diagnosis (1) Neurological symptoms: Code(s): R29.90 - Unspecified symptoms and signs involving the nervous system Status: Acute Assessment and Plan: The patient presented to the emergency department for evaluation of confusion. On arrival to the ED he mentions some tingling in the left arm weakness in the left leg and he was triaged as a code stroke. CTA of the head and neck and head CT did not show any acute findings. Continue neurologic checks q.4 hours. Brain MRI negative for acute intracranial process. He will be monitored on telemetry. Echocardiogram Ordered Summary ? 1. Complete two-dimensional, color flow and Doppler transthoracic echocardiogram is performed. ? 2. Left ventricular chamber dimension is normal. ? 3. Left ventricular systolic function is normal, estimated at 65-70%. ? 4. There is mildly increased left ventricular wall thickness. ? 5. The left ventricular diastolic function is grade I diastolic dysfunction. ? 6. Right ventricular systolic function is normal. ? 7. There is mild mitral valve regurgitation. ? 8. There is mild tricuspid valve regurgitation. Carotid Doppler revealing no significant stenosis of the bilateral internal carotid arteries, antegrade flow in the bilateral vertebral arteries. (2) Urinary tract infection: Code(s): N39.0 - Urinary tract infection, site not specified Status: Acute Assessment and Plan: In the ED he spiked a temperature of 101.4? and it appears that he has urinary tract infection. Urine was positive for 1+ leukocyte esterase, 21 to 50 wbc's, and 3+ bacteria. He has been started on ceftriaxone. Urine culture + for E-coli Blood cultures with NGTD (3) Confusion: Code(s): R41.0 - Disorientation, unspecified Status: Acute Assessment and Plan: Resolved -ataxic movement has resolved today after starting doxycycline. -EEG normal Plan If no fevers overnight and patients symptoms continue to improve then likely d/c home tomorrow. Serologies will take a week to result. DS: Summary Hospital Course Reason for hospitalization: Acute UTI, neurological symptoms Hospital Course: HPI obtained from chart: This is a pleasant 67-year-old male with history of prostate cancer status post prostatectomy, kidney stones, hypertension, and dyslipidemia who presented to the emergency department via private vehicle for evaluation of weakness and confusion.? The patient provides the following history. This morning he spent a couple of hours pulling weeds in the yard. Not long thereafter he started to feel ?rough? with generalized malaise and he drank some water since he had been working in the heat. He then drove his to a doctor's appointment in [place] and she indicates that he seemed to be a bit agitated and irritable while in the waiting room. She was called back for her appointment and at that time the patient started to feel hot and weak so he went to the car and sat in the air conditioning. When she returned to the car, the patient seemed confused and he reported that he felt weak when walking, more so in the left leg in addition to some mild tingling in the left arm. He was triaged as a code stroke on arrival to the ER and brain CT did not show any acute findings. He was febrile on arrival with a temperature of 101.4? F. Lactic acid, CMP, and CBC were unremarkable. Urine was positive for 1+ leukocyte esterase, 21 to 50 wbc's, and 3+ bacteria.? With further questioning he admits to having dysuria the last couple of days as well as a decreased appetite. He was started on ceftriaxone and he is being admitted in this setting for further treatment and evaluation. Currently he reports feeling much better. He denies headache, neck ache, sinus congestion, sore throat, cough, chest pain, palpitations, sensat
--- NOTE | 2023-03-14 11:56 | PC.NURSE ---
Pt discharging home with family. Pt is A&O4 this morning. Pt has participated and contributed in plan of care. Pt denies any pain at this time. Pt expresses no needs. Pt is compliant with care. Pt IV removed with tip intact. Pt tolerated well. Pt walked to car with family. Pt medications were transmitted over. Pt reports pharmacy sent notification of receiving prescription, filling initiated. Pt was monitored for any changes in status.
[2023-03-15 08:47] LABS: Lyme Disease Ab (IgM), Blot Negative (Negative); Lyme Disease Ab(IgG), Blot Negative (Negative)
[2023-03-15 14:13] LABS: West Nile Virus, IgM <0.90 index (<0.90)
== END 2023-03-14 11:58 | disposition home or self-care (01) | DRG 690 ==
LOC: ANHED 17:11 → ANH3MEDSUR 19:24
PROVIDERS: Internal Medicine Critical Care Medicine; Physician Assistant; Admitting Provider Family Medicine; Emergency Provider Emergency Medicine; PCP Family Medicine; Visit Provider Nurse Practitioner Acute Care
DX: N39.0 Urinary tract infection, site not specified (principal); B96.20 Unspecified Escherichia coli [E. coli] as the cause of diseases classified elsewhere; R41.0 Disorientation, unspecified; E78.5 Hyperlipidemia, unspecified; G47.33 Obstructive sleep apnea (adult) (pediatric); I10 Essential (primary) hypertension; Z87.442 Personal history of urinary calculi; Z90.79 Acquired absence of other genital organ(s); Z79.82 Long term (current) use of aspirin; Z85.46 Personal history of malignant neoplasm of prostate
CPT/HCPCS: 36415; 70450; 70496; 70498; 70553; 71045; 74176; 80048; 80053; 81001; 82550; 82948; 83605; 83690; 83735; 84145; 84443; 84484; 85025; 85027; 85610; 85730; 86617; 86666; 86788; 87040; 87077; 87086; 87186; 93005; 93306; 93880; 95816; 96361; 96365; 97116; 97161; 97165; 97530; 97535; 99285; A9270; A9577; G0378; J0696; J2060; J7030; Q9967

== ENCOUNTER 2023-03-17 16:09 | Inpatient (IN) | payer MEDICARE, BC, SELFPAY ==
--- NOTE | ~2023-03-17 | XR_ITS ---
EXAMINATION: XR lumbar puncture diagnostic DATE: 03/19/2023 09:47 INDICATION: Weakness. Shaking. TECHNIQUE: The procedure including the risks, benefits, and alternatives was discussed with the patie nt. Risks discussed included spinal headache, cerebrospinal fluid leak, bleeding, and infection. The patient understood the risks and agreed to proceed. A timeout was performed to verify the patient' s name, date of , and procedure to be performed. The skin overlying the L3-L4 level was prepped and draped in usual sterile fashion. Subcutaneous 1% lidocaine was used for local anesthesia. A 20 gauge spinal needle was advanced under fluoroscopic guidance. The needle was removed and the entry s ite was cleaned and dressed. There were no immediate complications. Fluoroscopy exposure time was 0. 1 minutes. The total number of images was 1. FINDINGS: Real-time fluoroscopy demonstrates the needle at the L3-L4 level. The opening pressure was 17 cm water (Normal range is variably defined as 6-20 cm water and up to 25 cm water in obese patient s. Pressure >25 cm water is one of the modified Dandy criteria for idiopathic intracranial hypertensi on). 15 mL of clear, colorless fluid was collected in 4 tubes. IMPRESSION: 1. Successful fluoro-guided lumbar puncture. Reviewed, dictated and finalized at location A.
--- NOTE | 2023-03-17 15:55 | ADMGEN ---
This patient, Hamilton Yanez, was admitted to Medical Room 346-01. Patient/family oriented to hospital policies and general routines including ID bracelet, bed and alarms, visiting hours, pain management, procedures, bathroom and other care routines, personal items, smoking policy, room service/diet, and visiting hours. Information on how to activate the Rapid Response Team has been discussed. Patient/Family are encouraged to report perceived risks to care and to ask questions if they do not understand what they are told or what they should do.
[2023-03-17 16:00] VITALS: BP 155/84; PULSE 67; RESP 15; TEMP 36.8; O2SAT 99
--- NOTE | 2023-03-17 16:08 | PM.IMHP ---
H&P: HPI History of Present Illness Date/Time: 03/17/23 17:30 Chief Complaint: Weakness. Narrative: This is a pleasant 67-year-old male with history of prostate cancer status post prostatectomy, kidney stones, hypertension, and dyslipidemia who is being directly admitted to the medical floor from the emergency department at an outside facility for evaluation of weakness. The patient provides the following history. He is known to myself and the hospitalist service from a recent admission earlier this week. At that time he presented to the emergency department with weakness and confusion and was febrile on arrival. He had reported left-sided weakness and was triaged as a code stroke though his stroke workup was completely normal. Urinalysis was abnormal and he was started on ceftriaxone; urine culture grew out pansensitive E coli. With his fever and neurologic symptoms he was empirically started on doxycycline for possible tick-borne illness and Lyme, Ehrlichia, and West Nile titers were ordered. One IgG band was positive on the Lyme studies and the rest of the testing was negative. He had been doing well since discharge and reports feeling fine when he got up this morning. He and his went to [facility] and approximately 45 minutes after arrival they were in a standing position when he suddenly felt weak and shaky. reports that he was pale and diaphoretic. [facility] his and they drove to the emergency department in [place]. CTA of the head and neck did not show any acute findings or large vessel occlusion. He chatted with a neurologist via telemedicine and she did not feel that his symptoms were caused by an acute MANAGER FINANCIAL REPORTING event. He was afebrile at their facility with stable vital signs. His labs were unremarkable. Urine showed 3+ blood but was otherwise unremarkable as well. Transfer was initiated to [place] for continuity of care, neurology consultation, and considerations for possible lumbar puncture which was not done during the previous day as he had improved. At the time my evaluation he feels weak and has diffuse arthralgias. He denies vertigo, vision changes, focal weakness, paresthesias, facial droop, difficulty speaking and swallowing, joint swelling and redness, rash, chest pain, shortness a breath, nausea, vomiting, diarrhea, and dysuria. Review of Systems Review of Systems: Twelve systems were reviewed and are negative except for as per HPI. [facility] Past Medical History Medical History Dyslipidemia Hypertension Kidney stones Obstructive sleep apnea Prostate cancer Surgical History Surgical History History of prostatectomy Family History Family History Other Hypertension Social History Social History (Updated 03/12/23 @ 13:34 by Etta Ramirez PA-C) Social History: Surrogate medical decision maker: Chris Dennisbertha, spouse. Code status: Full code. Smoking status: Never smoker Alcohol intake: never Substance use: never Lack of Transportation: No Lack of Food: Never True Current Housing: I Have Housing Concerned About Future Housing: No Difficulty Paying Gas/Electric Bills: No Difficulty Paying for Meds: No Currently Unemployed: No Education: Decline to Answer Difficulty w/ Childcare or Family Care: No Living arrangements: with family Occupation/Education: retired Spiritual care concerns: No Meds Home Medications and Allergies Home Medications Medication Instructions Recorded Confirmed Type aspirin 81 mg capsule 81 mg PO DAILY 03/11/23 03/17/23 History hydrochlorothiazide 25 mg tablet 25 mg PO DAILY 03/11/23 03/17/23 History lisinopril 10 mg tablet 10 mg PO DAILY 03/11/23 03/17/23 History niacin 50 mg tablet 50 mg PO DAILY 03/11/23 03/17/23 History om
[2023-03-17 17:08] VITALS: BMI 74.4
[2023-03-17 20:00] VITALS: PULSE 82
[2023-03-17] MEDS: WATER FOR IRRIGATION, STERILE 1,000 ML BOTTLE 1000 ML (20:30)
[2023-03-17 22:00] VITALS: BP 138/62; PULSE 74; RESP 18; TEMP 36.7; O2SAT 96
[2023-03-18] VITALS (10 sets, daily range): BP systolic 126–147; BP diastolic 59–78; PULSE 61–85; RESP 16–20; TEMP 36.3–36.6; O2SAT 93–100
[2023-03-18 05:28] LABS: Appearance Urine Clear (Clear); Bacteria Urine None Seen /hpf; Bilirubin Urine Negative (Negative); Blood Urine Trace (Negative); Color Urine Yellow (Yellow); Glucose Urine UA Negative (Negative); Ketones Urine Negative (Negative); Leukocyte Esterase Ur Negative LEU/UL (Negative); Nitrate Urine Negative (Negative); Non Pathogenic Casts 0-2; Protein Urine Negative (Negative); RBC Urine 0-2 /hpf (0-2); Squamous Epithelial Cell Urine None seen /hpf (Few); Urobilinogen Urine 0.2 mg/dL (<2.0); WBC Urine 0-5 /hpf; pH Urine 5.5 (5.0-9.0)
[2023-03-18 05:33] LABS: Add Urine Microscopic? YES
[2023-03-18 06:45] LABS: Hematocrit 36.8 % (42.0-52.0); Mean Corpuscular HGB Conc 35.3 g/dl (32-36); Mean Corpuscular Hemoglobin 30.7 pg (26-34); Mean Corpuscular Volume 86.8 fl (80-100); Mean Platelet Volume 8.8 fl (7.4-10.4); Platelet Count Result 267 k/mm3 (150-375); Red Blood Count 4.24 M/mm3 (4.6-6.20); Red Cell Distribution Width 13.2 % (11.5-14.5); White Blood Count 5.8 K/mm3 (4.5-10.0)
--- NOTE | 2023-03-18 06:49 | PC.NURSE ---
Attempted to place neurology consult for patient, informed Dr. Hedrick who was board of education secretary for Saturday (called at 0615), he states its Saturday, call Dr. Guerra . Call schedule for Saturday says OPEN . Call placed to Dr. Guerra who states she is not board of education secretary and to follow the call schedule and that means no one is board of education secretary. Notified Monika greenhouse or nursery transplanter and informed.
[2023-03-18 06:57] LABS: Alanine Aminotransferase 51 U/L (6-50); Albumin Level 3.9 g/dL (3.5-5.1); Alkaline Phosphatase 54 U/L (38-126); Anion Gap 2 mmol/L (8-16); Aspartate Amino Transferase 47 U/L (17-59); Bilirubin,Total 0.5 mg/dL (0.2-1.3); Blood Urea Nitrogen 18 mg/dL (9-20); Calcium 9.3 mg/dL (8.4-10.2); Carbon Dioxide 33 mmol/L (22-30); Chloride 103 mmol/L (98-107); Estimated CRCL calculation 81 ml/min; Estimated Glomerular Filt Rate > 60; Glucose 127 mg/dL (65-110); Sodium 138 mmol/L (137-145)
[2023-03-18 07:37] LABS: Erythrocyte Sedimentation Rate 29 mm/hr (0-20)
[2023-03-18] MEDS: lisinopriL 10 MG TABLET PO (08:17)
[2023-03-18] MEDS: AMOXICILLIN/CLAVULANATE K 875-125 MG TAB 1 TABLET PO ×2 (08:18→17:40)
[2023-03-18] MEDS: ASPIRIN 81 MG ENTERIC TABLET PO (08:18)
[2023-03-18] MEDS: OMEGA 3 POLYUNSAT FATTY ACIDS 1 GM CAP PO (08:18)
[2023-03-18] MEDS: DOXYCYCLINE 100 MG/NS 100 ML 100 MG/100 ML BAG IVPB ×2 (08:18→21:01)
[2023-03-18] MEDS: hydroCHLOROthiazide 25 MG TABLET PO (08:18)
[2023-03-18] MEDS: PANTOPRAZOLE 40 MG TABLET PO (08:18)
--- NOTE | 2023-03-18 16:29 | PM.IMPN ---
Progress Note: A&P Assessment and Plan (1) Generalized weakness: Code(s): R53.1 - Weakness Status: Acute (2) Vasovagal reaction: Code(s): R55 - Syncope and collapse Status: Acute (3) Myalgia: Code(s): M79.10 - Myalgia, unspecified site Status: Acute (4) Hematuria: Code(s): R31.9 - Hematuria, unspecified Status: Acute (5) Recent urinary tract infection: Code(s): Z87.440 - Personal history of urinary (tract) infections Status: Acute (6) Hypertension: Code(s): I10 - Essential (primary) hypertension Status: Acute Plan History reviewed. Extensive workup recently which has been negative. For jerking and flailing movement of his arms and legs without loss of consciousness no prior neurological history such as MS ALS seizure disorder Parkinson's. Easy came back negative Lyme serology only positive for 1 band. Was empirically treated with doxycycline. Also had evidence of UTI which was adequately treated. Brain MRI came back negative. Neurology evaluated the patient as well. Will further evaluate with lumbar puncture. Will check ABG to rule out hypercapnia. Medications were reviewed no new medication. Myoclonic jerks discussed lumbar puncture and agreeable. Recent West Nile and Ehrlichia titers were normal/nondetected. Lyme titers were all nonreactive aside from IgG 39 kDa band. IgM are negative and acute Lyme infection is not likely but I suppose we could consider a chronic Lyme infection which is essentially seronegative aside from 1 band. For now will continue with the doxycycline. Neurology has been consulted for recommendations regarding possible lumbar puncture which was discussed during his previous staty. He would benefit from Infectious Disease referral as an outpatient for further investigation into this. Vital signs have been stable. His home medications will be reviewed and resumed as appropriate. History suggestive of myoclonic jerks. Unclear etiology will check ABG as delineated above. Lumbar puncture will be ordered Dr. Fuchs to see him in a.m.. Continue CPAP at night Subjective Date/time seen: 03/18/23 16:29 Interval history: History reviewed. Extensive workup recently which has been negative. For jerking and flailing movement of his arms and legs without loss of consciousness no prior neurological history such as MS ALS seizure disorder Parkinson's. Easy came back negative Lyme serology only positive for 1 band. Was empirically treated with doxycycline. Also had evidence of UTI which was adequately treated. Brain MRI came back negative. Neurology evaluated the patient as well. Will further evaluate with lumbar puncture. Will check ABG to rule out hypercapnia. Medications were reviewed no new medication. Myoclonic jerks discussed lumbar puncture and agreeable. He is back to his baseline level now labs are unremarkable. Review of Systems Review of Systems: All systems reviewed & are unremarkable except as noted in HPI and below Exam Narrative: General:? Well l-appearing gentleman in the semi-[place] position in bed. HEENT:?PERRL, EOMI. Sclera anicteric. Conjunctiva mildly injected. Wearing corrective lenses. Tacky mucous membranes. Neck:??Supple. No lymphadenopathy. Respiratory:?Lungs are clear to auscultation bilaterally. Cardiovascular:??Regular rate and rhythm with S1-S2. Gastrointestinal:??Abdomen is soft, nontender, and nondistended with positive bowel sounds. Skin:??Warm and dry.? No rash or lesions. Extremities:??No cyanosis, clubbing, or edema. Radial and pedal pulses intact. Neurological:??Alert and oriented x4.? Cranial nerves 2-12 are grossly intact. Speech is clear.? No facial asymmetry. 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 Normal [id number].?No pronator drift. Sensation intact throughout. Psychiatric:?Appropriate mood and affect. Seems slightly anxious. Objective Data Vital Signs Vital Signs: Leona
[2023-03-18 16:58] LABS: Alveolar/Arterial O2 Gradient 19.5 mmHg; Base Excess ABG 2.4 mEq/l (+/-2.0); Fractional Inspired Oxygen 21 %; HCO3 ABG 25.8 mEq/l (22.0-26.0); Oxygen Content ABG 18.4 %vol (16.0-22.0); Oxygen Saturation ABG 97.1 % (95.0-100.0); Oxyhemoglobin 95.3 % THb (90.0-100.0); PCO2 ABG 36.3 mmHg (35.0-45.0); PO2 ABG 86.8 mmHg (80.0-100.0); PO2 FiO2 Ratio Arterial Blood 4.13 %; Total Hemoglobin 13.7 g/dL (12.0-18.0)
[2023-03-18 16:59] LABS: Modified Allen's Test Pass; Site Drawn RIGHT RADIAL
[2023-03-19] VITALS (17 sets, daily range): BP systolic 123–158; BP diastolic 61–86; PULSE 62–93; RESP 16–18; TEMP 36.3–36.6; O2SAT 96–100
[2023-03-19 05:57] LABS: Basophils Absolute Auto 0.1 K/mm3 (0.0-0.1); Basophils Percent Auto 1.1 % (0.2-1.2); Eosinophils Absolute Auto 0.2 K/mm3 (0-0.3); Eosinophils Percent Auto 3.4 % (0-4.4); Hematocrit 36.5 % (42.0-52.0); Hemoglobin 12.8 g/dL (14.0-18.0); Immature Granulocyte Absolute 0.02 K/mm3 (0.00-0.031); Immature Granulocyte Percent A 0.3 % (0-0.5); Lymphocytes Absolute Auto 1.67 K/mm3 (0.9-3.2); Lymphocytes Percent Auto 25.5 % (18.3-44.2); Mean Corpuscular HGB Conc 35.1 g/dl (32-36); Mean Corpuscular Hemoglobin 30.6 pg (26-34); Mean Corpuscular Volume 87.3 fl (80-100); Mean Platelet Volume 8.5 fl (7.4-10.4); Monocytes Absolute Auto 0.5 K/mm3 (0.1-0.6); Neutrophils Absolute Auto 4.1 K/mm3 (1.3-6.7); Neutrophils Percent Auto 62.7 % (45.5-73.1); Platelet Count Result 242 k/mm3 (150-375); Red Blood Count 4.18 M/mm3 (4.6-6.20); Red Cell Distribution Width 12.9 % (11.5-14.5); White Blood Count 6.6 K/mm3 (4.5-10.0)
[2023-03-19] MEDS: SODIUM CHLOR 3% 15 ML NEB (RESPIRATORY THERAPY) 6 ML INHALATION (06:03)
[2023-03-19 06:09] LABS: Alanine Aminotransferase 46 U/L (6-50); Albumin Level 3.9 g/dL (3.5-5.1); Alkaline Phosphatase 59 U/L (38-126); Anion Gap 2 mmol/L (8-16); Aspartate Amino Transferase 49 U/L (17-59); Bilirubin,Total 0.5 mg/dL (0.2-1.3); Blood Urea Nitrogen 19 mg/dL (9-20); Calcium 9.4 mg/dL (8.4-10.2); Carbon Dioxide 34 mmol/L (22-30); Chloride 103 mmol/L (98-107); Estimated CRCL calculation 74 ml/min; Estimated Glomerular Filt Rate > 60; Glucose 128 mg/dL (65-110); Sodium 139 mmol/L (137-145)
--- NOTE | 2023-03-19 06:26 | PCRCNOTE ---
Hypertonic saline neb given. Sputum obtained. RN aware
[2023-03-19] MEDS: AMOXICILLIN/CLAVULANATE K 875-125 MG TAB 1 TABLET PO ×2 (08:04→16:26)
[2023-03-19] MEDS: ASPIRIN 81 MG ENTERIC TABLET PO (08:04)
[2023-03-19] MEDS: lisinopriL 10 MG TABLET PO (08:04)
[2023-03-19] MEDS: PANTOPRAZOLE 40 MG TABLET PO (08:04)
[2023-03-19] MEDS: OMEGA 3 POLYUNSAT FATTY ACIDS 1 GM CAP PO (08:04)
[2023-03-19] MEDS: DOXYCYCLINE 100 MG/NS 100 ML 100 MG/100 ML BAG IVPB ×2 (08:04→20:35)
[2023-03-19] MEDS: hydroCHLOROthiazide 25 MG TABLET PO (08:04)
[2023-03-19 08:39] LABS: INR 1.1; Prothrombin Time 14.3 Seconds (11.1-14.7)
[2023-03-19 08:40] LABS: Partial Thromboplastin Time 27.5 SECONDS (22.3-36.8)
[2023-03-19 09:56] LABS: Glucose CSF 69 mg/dL (40-70); Total Protein CSF 64 mg/dL (12-60)
[2023-03-19 10:30] LABS: Appearance CSF Clear (Clear); CSF source CSF; Color CSF Colorless (Colorless)
[2023-03-19 10:31] LABS: Lymphocytes CSF 96 % (40-80); Monocytes CSF 4 % (15-45); Nucleated Cell CSF 2 /uL (0-5); Red Blood Cell CSF 1 (0-2)
--- NOTE | 2023-03-19 17:27 | WPDPN ---
Progress Note: A&P Assessment and Plan (1) Generalized weakness: Code(s): R53.1 - Weakness Status: Acute (2) Vasovagal reaction: Code(s): R55 - Syncope and collapse Status: Acute (3) Myalgia: Code(s): M79.10 - Myalgia, unspecified site Status: Acute (4) Hematuria: Code(s): R31.9 - Hematuria, unspecified Status: Acute (5) Recent urinary tract infection: Code(s): Z87.440 - Personal history of urinary (tract) infections Status: Acute (6) Hypertension: Code(s): I10 - Essential (primary) hypertension Status: Acute Plan History reviewed. Extensive workup recently which has been negative. For jerking and flailing movement of his arms and legs without loss of consciousness no prior neurological history such as MS ALS seizure disorder Parkinson's. Easy came back negative Lyme serology only positive for 1 band. Was empirically treated with doxycycline. Also had evidence of UTI which was adequately treated. Brain MRI came back negative. Neurology evaluated the patient as well. Will further evaluate with lumbar puncture. Will check ABG to rule out hypercapnia. Medications were reviewed no new medication. Myoclonic jerks discussed lumbar puncture and agreeable. Recent West Nile and Ehrlichia titers were normal/nondetected. Lyme titers were all nonreactive aside from IgG 39 kDa band. IgM are negative and acute Lyme infection is not likely but I suppose we could consider a chronic Lyme infection which is essentially seronegative aside from 1 band. For now will continue with the doxycycline. Neurology has been consulted for recommendations regarding possible lumbar puncture which was discussed during his previous staty. He would benefit from Infectious Disease referral as an outpatient for further investigation into this. Vital signs have been stable. His home medications will be reviewed and resumed as appropriate. History suggestive of myoclonic jerks. Unclear etiology will check ABG as delineated above. Lumbar puncture will be ordered Dr. Fuchs to see him in a.m.. Continue CPAP at night 03/19/2023 interval history: Extensive workup recently which has been negative. For jerking and flailing movement of his arms and legs without loss of consciousness no prior neurological history such as MS ALS seizure disorder Parkinson's. Easy came back negative Lyme serology only positive for 1 band. Was empirically treated with doxycycline. Also had evidence of UTI which was adequately treated. Brain MRI came back negative. Neurology evaluated the patient as well. Will further evaluate with lumbar puncture. is scheduled for today, ABG ruled out hypercapnia. Medications were reviewed no new medication. Myoclonic jerks discussed lumbar puncture and agreeable. He is back to his baseline level now labs are unremarkable. will continue to monitor. Subjective Date/time seen: 03/19/23 17:27 Interval history: 03/19/2023 interval history: Extensive workup recently which has been negative. For jerking and flailing movement of his arms and legs without loss of consciousness no prior neurological history such as MS ALS seizure disorder Parkinson's. Easy came back negative Lyme serology only positive for 1 band. Was empirically treated with doxycycline. Also had evidence of UTI which was adequately treated. Brain MRI came back negative. Neurology evaluated the patient as well. Will further evaluate with lumbar puncture. is scheduled for today, ABG ruled out hypercapnia. Medications were reviewed no new medication. Myoclonic jerks discussed lumbar puncture and agreeable. He is back to his baseline level now labs are unremarkable. will continue to monitor. Review of Systems Review of Systems: Twelve systems were reviewed and are negative except for as per HPI. Exam Narrative: Morbidly obese Patient is comfortable, NAD HEENT: eyes are clear and none icter
[2023-03-20] VITALS (13 sets, daily range): BP systolic 117–135; BP diastolic 54–74; PULSE 64–98; RESP 16–18; TEMP 36.3–36.6; O2SAT 95–100
[2023-03-20] MEDS: SODIUM CHLOR 3% 15 ML NEB (RESPIRATORY THERAPY) 6 ML INHALATION (05:32)
[2023-03-20] MEDS: PANTOPRAZOLE 40 MG TABLET PO (08:20)
[2023-03-20] MEDS: OMEGA 3 POLYUNSAT FATTY ACIDS 1 GM CAP PO (08:20)
[2023-03-20] MEDS: AMOXICILLIN/CLAVULANATE K 875-125 MG TAB 1 TABLET PO ×2 (08:20→16:27)
[2023-03-20] MEDS: hydroCHLOROthiazide 25 MG TABLET PO (08:20)
[2023-03-20] MEDS: lisinopriL 10 MG TABLET PO (08:20)
[2023-03-20] MEDS: ASPIRIN 81 MG ENTERIC TABLET PO (08:20)
[2023-03-20] MEDS: DOXYCYCLINE 100 MG/NS 100 ML 100 MG/100 ML BAG IVPB ×2 (08:21→21:23)
--- NOTE | 2023-03-20 12:47 | WPDNEURCNPN ---
Assessment and Plan Assessment and plan (1) Recent urinary tract infection: Code(s): Z87.440 - Personal history of urinary (tract) infections Status: Acute (2) Generalized weakness: Code(s): R53.1 - Weakness Status: Acute (3) Altered mental status: Code(s): R41.82 - Altered mental status, unspecified Status: Acute Plan Nonfocal neurological examination with the history of sudden onset of generalized weakness even at this stage is exam is nonfocal spinal fluid studies can be carried out to rule out the remote possibility of sudden bleed or unusual infection as planned Consult date: 03/20/23 HPI: Hamilton Yanez is a 67 year old male admitted to the hospital for evaluation of generalized weakness patient was recently admitted to this hospital when he was presented to emergency department with complaint of weakness and confusion and was reportedly febrile on arrival in addition he was noted to have left-sided weakness but his workup for the stroke was completely normal he was treated with antibiotics because of the abnormal UA and positive culture of the urine for E coli he was empirically started on doxycycline for possible tick-borne illness and Lyme and Ehrlichia and West Nile her order 1 IgG band was positive on the Lyme studies and the rest of the study were negative for he had been doing well since discharge up until when he got up in the morning his and him went to the [facility] and after 45 minutes of arrival they were in standing position when he suddenly felt weak and shaky and he was noted early pale and diaphoretic with the help of his and they drove to the emergency department in [place] CTA of the head and neck was negative he confirmed on conversation with the neurologist on telephone there was no neurological even at his labs were normal except the UA for the hematuria positive he was initially feeling weak when he came to this office along with the diffuse pain in different joints but gave no history of visual difficulties or vertigo or focal weakness or paresthesia he does have ongoing history of as noted previously dyslipidemia hypertension renal stone obstructive sleep apnea and cancer of the prostate he has never a smoker ever alcohol intake his medications included aspirin 81 mg hydrochlorothiazide 25 mg daily lisinopril 10 mg daily he is not allergic to any medication vital signs were normal at the time of admission and repeated neuro examination was nonfocal repeat CT of the head and neck was negative PMFSH Past Medical History Medical History Dyslipidemia Hypertension Kidney stones Obstructive sleep apnea Prostate cancer Surgical History Surgical History History of prostatectomy Family History Family History Other Hypertension Social History Social History (Updated 03/12/23 @ 13:34 by Etta Ramirez PA-C) Social History: Surrogate medical decision maker: Chris Dennisbertha, spouse. Code status: Full code. Smoking status: Never smoker Alcohol intake: never Substance use: never Lack of Transportation: No Lack of Food: Never True Current Housing: I Have Housing Concerned About Future Housing: No Difficulty Paying Gas/Electric Bills: No Difficulty Paying for Meds: No Currently Unemployed: No Education: Decline to Answer Difficulty w/ Childcare or Family Care: No Living arrangements: with family Occupation/Education: retired Spiritual care concerns: No Meds Home Medications and Allergies Home Medications Medication Instructions Recorded Confirmed Type aspirin 81 mg capsule 81 mg PO DAILY 03/11/23 03/17/23 History hydrochlorothiazide 25 mg tablet 25 mg PO DAILY 03/11/23 03/17/23 History lisinopril 10 mg tablet 10 mg PO DAILY 03/11/23 03/17/23 History
--- NOTE | 2023-03-20 15:23 | WPDPN ---
Progress Note: A&P Assessment and Plan (1) Generalized weakness: Code(s): R53.1 - Weakness Status: Acute (2) Vasovagal reaction: Code(s): R55 - Syncope and collapse Status: Acute (3) Myalgia: Code(s): M79.10 - Myalgia, unspecified site Status: Acute (4) Hematuria: Code(s): R31.9 - Hematuria, unspecified Status: Acute (5) Recent urinary tract infection: Code(s): Z87.440 - Personal history of urinary (tract) infections Status: Acute (6) Hypertension: Code(s): I10 - Essential (primary) hypertension Status: Acute Plan History reviewed. Extensive workup recently which has been negative. For jerking and flailing movement of his arms and legs without loss of consciousness no prior neurological history such as MS ALS seizure disorder Parkinson's. Easy came back negative Lyme serology only positive for 1 band. Was empirically treated with doxycycline. Also had evidence of UTI which was adequately treated. Brain MRI came back negative. Neurology evaluated the patient as well. Will further evaluate with lumbar puncture. Will check ABG to rule out hypercapnia. Medications were reviewed no new medication. Myoclonic jerks discussed lumbar puncture and agreeable. Recent West Nile and Ehrlichia titers were normal/nondetected. Lyme titers were all nonreactive aside from IgG 39 kDa band. IgM are negative and acute Lyme infection is not likely but I suppose we could consider a chronic Lyme infection which is essentially seronegative aside from 1 band. For now will continue with the doxycycline. Neurology has been consulted for recommendations regarding possible lumbar puncture which was discussed during his previous staty. He would benefit from Infectious Disease referral as an outpatient for further investigation into this. Vital signs have been stable. His home medications will be reviewed and resumed as appropriate. History suggestive of myoclonic jerks. Unclear etiology will check ABG as delineated above. Lumbar puncture will be ordered Dr. Fuchs to see him in a.m.. Continue CPAP at night 03/20/2023 interval history: Extensive workup recently which has been negative. For jerking and flailing movement of his arms and legs without loss of consciousness no prior neurological history such as MS ALS seizure disorder Parkinson's. Easy came back negative Lyme serology only positive for 1 band. Was empirically treated with doxycycline. Also had evidence of UTI which was adequately treated. Brain MRI came back negative. Neurology evaluated the patient as well. To further evaluate patien had lumbar puncture on 03/19 there is no initial sign of infection, and hydrocephalus, ABG ruled out hypercapnia. Medications were reviewed no new medication. today seen by neurologist and recommended to follow spinla fluids culture, He is back to his baseline level now labs are unremarkable. will have PT/OT evaluate the patien, will continue to monitor. Subjective Date/time seen: 03/20/23 15:23 Interval history: 03/20/2023 interval history: Extensive workup recently which has been negative. For jerking and flailing movement of his arms and legs without loss of consciousness no prior neurological history such as MS ALS seizure disorder Parkinson's. Easy came back negative Lyme serology only positive for 1 band. Was empirically treated with doxycycline. Also had evidence of UTI which was adequately treated. Brain MRI came back negative. Neurology evaluated the patient as well. To further evaluate patien had lumbar puncture on 03/19 there is no initial sign of infection, and hydrocephalus, ABG ruled out hypercapnia. Medications were reviewed no new medication. today seen by neurologist and recommended to follow spinla fluids culture, He is back to his baseline level now labs are unremarkable. will have PT/OT evaluate the patien, will continue to monitor. Review of Systems R
[2023-03-20] MEDS: ACETAMINOPHEN 325 MG TABLET 650 MG PO (16:28)
[2023-03-21 06:00] VITALS: BP 149/77; PULSE 80; RESP 16; TEMP 36.6; O2SAT 99
[2023-03-21] MEDS: hydroCHLOROthiazide 25 MG TABLET PO (08:44)
[2023-03-21] MEDS: lisinopriL 10 MG TABLET PO (08:45)
[2023-03-21] MEDS: ASPIRIN 81 MG ENTERIC TABLET PO (08:45)
[2023-03-21] MEDS: AMOXICILLIN/CLAVULANATE K 875-125 MG TAB 1 TABLET PO (08:45)
[2023-03-21] MEDS: OMEGA 3 POLYUNSAT FATTY ACIDS 1 GM CAP PO (08:45)
[2023-03-21] MEDS: PANTOPRAZOLE 40 MG TABLET PO (08:45)
[2023-03-21] MEDS: DOXYCYCLINE 100 MG/NS 100 ML 100 MG/100 ML BAG IVPB (08:47)
[2023-03-21 09:14] LABS: Hematocrit 38.8 % (42.0-52.0); Hemoglobin 13.7 g/dL (14.0-18.0); Mean Corpuscular HGB Conc 35.3 g/dl (32-36); Mean Corpuscular Hemoglobin 30.5 pg (26-34); Mean Corpuscular Volume 86.4 fl (80-100); Mean Platelet Volume 8.6 fl (7.4-10.4); Platelet Count Result 279 k/mm3 (150-375); Red Blood Count 4.49 M/mm3 (4.6-6.20); Red Cell Distribution Width 13.1 % (11.5-14.5); White Blood Count 7.6 K/mm3 (4.5-10.0)
[2023-03-21 09:24] LABS: Anion Gap 3 mmol/L (8-16); Blood Urea Nitrogen 20 mg/dL (9-20); Calcium 9.5 mg/dL (8.4-10.2); Carbon Dioxide 28 mmol/L (22-30); Chloride 103 mmol/L (98-107); Estimated CRCL calculation 81 ml/min; Estimated Glomerular Filt Rate > 60; Glucose 120 mg/dL (65-110); Potassium 3.8 mmol/L (3.4-5.0); Sodium 134 mmol/L (137-145)
--- NOTE | 2023-03-21 12:14 | WPDNEUROPN ---
Progress Note: A&P Assessment and Plan (1) Altered mental status: Code(s): R41.82 - Altered mental status, unspecified Status: Acute (2) Generalized weakness: Code(s): R53.1 - Weakness Status: Acute (3) Myalgia: Code(s): M79.10 - Myalgia, unspecified site Status: Acute (4) Positive Lyme disease serology: Code(s): R76.8 - Other specified abnormal immunological findings in serum Status: Acute Plan Mr. Yanez is a 67 year old male presenting due to episodes of confusion, shaking, in the setting of possible Lyme disease. CSF results are not very concerning for underlying infection. Cell count only 2, and very mild increase in protein does not seem significant. However, he has been on antibiotics, which could have affected the results. Patient's neurological exam seems normal today and he appears to be back to his baseline. - Will continue treatment of Lyme disease for 3 additional weeks - Patient will need outpatient follow-up with Infectious disease and close follow-up with PCP - Discussed return precautions with patient and his Subjective Date/time seen: 03/21/23 12:14 Interval history: Mr. Yanez is a 67 year old male with a history of prostate cancer s/p prostatectomy, kidney stones, hypertension, and dyslipidemia. Patient presented At that time he presented to the emergency department with weakness and confusion and was febrile on arrival. He had reported left-sided weakness/paraesthesias. Urinalysis was abnormal and he was started on ceftriaxone; urine culture grew out pansensitive E coli. With his fever and neurologic symptoms he was empirically started on doxycycline for possible tick-borne illness and Lyme, Ehrlichia, and West Nile titers were ordered. One IgG band was positive on the Lyme studies and the rest of the testing was negative. Patient was discharged, although shortly afterwards, on day of presentation, patient was at tenriism. While standing he felt weak and shaking. Patient was noted to be pale and diaphoretic. He was initially taken to [facility] CTA brain/carotid were unrevealing. He was transferred to [facility] as a direct admission. His Urine was unrevealing. He had a LP which had a normal cell count, and only slightly elevated protein of 64, and lymphocytic predominance. Preliminary CSF culture is negative. He was continued on doxycycline and started on Augmentin as well. Patient overall feels better since has been admitted. He has not had any shaking episodes and has been ambulating without difficulty. He denies any generalized weakness or numbness. Review of Systems Constitutional: Constitutional: Denies chills, Denies fever(s) and Denies weight loss Eyes: Eyes: Denies diplopia and Denies loss of vision ENT: Denies dizziness, Denies hearing loss and Denies tinnitus Cardiovascular: Cardiovascular: Denies chest pain, Denies syncope and Denies dyspnea Respiratory: Respiratory: Denies cough, Denies dyspnea and Denies wheezing Gastrointestinal: Gastrointestinal: Denies abdominal pain, Denies change in bowel habits and Denies vomiting Genitourinary: Genitourinary: Denies urinary incontinence Musculoskeletal: Musculoskeletal: Reports arthralgias and Denies joint swelling Integumentary/Breasts: Skin/Breast: Denies new lesions and Denies rash Neurologic: Reports as per HPI, Denies dizziness, Denies syncope and Denies loss of vision Psychiatric: Psychiatric: Denies anxiety and Denies depression Endocrine: Endocrine: Denies cold intolerance and Denies heat intolerance Hematologic/Lymphatic: Hematologic/Lymphatic: Denies easy bleeding and Denies easy bruising Allergic/Immunologic: Allergic/Immunologic: Denies no additional allergic/immunologic complaints and Denies wheezing Exam Const: General: comfortable and no acute distress HENMT: Mouth: Yes moist mucous membranes Eyes: Pupils: Equal, round and reactive pupils present EOM: EOMs intact bila
--- NOTE | 2023-03-21 12:18 | PM.DS ---
DS: Admitting Diagnosis Discharge Date 03/21/2023 Admitting Diagnosis Weakness DS: Discharge Diagnosis Discharge Diagnosis (1) Generalized weakness: Code(s): R53.1 - Weakness Status: Acute (2) Vasovagal reaction: Code(s): R55 - Syncope and collapse Status: Acute (3) Myalgia: Code(s): M79.10 - Myalgia, unspecified site Status: Acute (4) Hematuria: Code(s): R31.9 - Hematuria, unspecified Status: Acute (5) Recent urinary tract infection: Code(s): Z87.440 - Personal history of urinary (tract) infections Status: Acute (6) Hypertension: Code(s): I10 - Essential (primary) hypertension Status: Acute Plan History reviewed. Extensive workup recently which has been negative. For jerking and flailing movement of his arms and legs without loss of consciousness no prior neurological history such as MS ALS seizure disorder Parkinson's. Easy came back negative Lyme serology only positive for 1 band. Was empirically treated with doxycycline. Also had evidence of UTI which was adequately treated. Brain MRI came back negative. Neurology evaluated the patient as well. Will further evaluate with lumbar puncture. Will check ABG to rule out hypercapnia. Medications were reviewed no new medication. Myoclonic jerks discussed lumbar puncture and agreeable. Recent West Nile and Ehrlichia titers were normal/nondetected. Lyme titers were all nonreactive aside from IgG 39 kDa band. IgM are negative and acute Lyme infection is not likely but I suppose we could consider a chronic Lyme infection which is essentially seronegative aside from 1 band. For now will continue with the doxycycline. Neurology has been consulted for recommendations regarding possible lumbar puncture which was discussed during his previous staty. He would benefit from Infectious Disease referral as an outpatient for further investigation into this. Vital signs have been stable. His home medications will be reviewed and resumed as appropriate. History suggestive of myoclonic jerks. Unclear etiology will check ABG as delineated above. Lumbar puncture will be ordered Dr. Fuchs to see him in a.m.. Continue CPAP at night 03/20/2023 interval history: Extensive workup recently which has been negative. For jerking and flailing movement of his arms and legs without loss of consciousness no prior neurological history such as MS ALS seizure disorder Parkinson's. Easy came back negative Lyme serology only positive for 1 band. Was empirically treated with doxycycline. Also had evidence of UTI which was adequately treated. Brain MRI came back negative. Neurology evaluated the patient as well. To further evaluate patien had lumbar puncture on 03/19 there is no initial sign of infection, and hydrocephalus, ABG ruled out hypercapnia. Medications were reviewed no new medication. today seen by neurologist and recommended to follow spinla fluids culture, He is back to his baseline level now labs are unremarkable. will have PT/OT evaluate the patien, will continue to monitor. DS: Summary Hospital Course Reason for hospitalization: Weakness. Narrative: This is a pleasant 67-year-old male with history of prostate cancer status post prostatectomy, kidney stones, hypertension, and dyslipidemia who is being directly admitted to the medical floor from the emergency department at an outside facility for evaluation of weakness. The patient provides the following history. He is known to myself and the hospitalist service from a recent admission earlier this week.? At that time he presented to the emergency department with weakness and confusion and was febrile on arrival. He had reported left-sided weakness and was triaged as a code stroke though his stroke workup was completely normal. Urinalysis was abnormal and he was started on ceftriaxone; urine culture grew out pansensitive E coli. With his fever and neurologic symptoms he was
[2023-03-21 23:19] LABS: Herpes Simplex Type 1 DNA PCR Not Detected (Not Detected); Herpes Simplex Type 2 DNA PCR Not Detected (Not Detected)
[2023-03-22 08:15] LABS: Epstein Barr Virus DNA PCR Not Detected (Not Detected); Source Epstein Barr Virus CSF
[2023-03-22 15:08] LABS: VDRL Quantitative CSF Nonreactive (Nonreactive)
[2023-03-22 16:07] LABS: Cryptococcus Antigen Not Detected (Not Detected); Cryptococcus Specimen Source Serum
[2023-03-27 10:37] LABS: Albumin, CSF 23.1 mg/dL (8.0-42.0); Albumin, Serum 3.7 g/dL (3.6-5.1); IgG Index, CSF 0.45 (<0.70); IgG, CSF 3.4 mg/dL (0.8-7.7); Immunoglobulin G, Serum 1210 mg/dL (600-1540); Myelin Basic Protein, CSF <2.0 mcg/L (<=4.0); Oligoclonal Bands (IgG), CSF Absent (Absent); Synthesis Rate IgG, CSF -4.3 mg/24 h (-9.9-3.3)
== END 2023-03-21 13:55 | disposition home or self-care (01) | DRG 312 ==
PROVIDERS: Internal Medicine; Physician Assistant; Admitting Provider Student in an Organized Health Care Education/Training Program; PCP Family Medicine; Visit Provider Family Medicine
DX: R55 Syncope and collapse (principal); R41.82 Altered mental status, unspecified; M79.10 Myalgia, unspecified site; R31.9 Hematuria, unspecified; I10 Essential (primary) hypertension; E78.5 Hyperlipidemia, unspecified; G47.33 Obstructive sleep apnea (adult) (pediatric); E66.01 Morbid (severe) obesity due to excess calories; Z68.33 Body mass index [BMI] 33.0-33.9, adult; Z87.440 Personal history of urinary (tract) infections; Z87.442 Personal history of urinary calculi; Z85.46 Personal history of malignant neoplasm of prostate
CPT/HCPCS: 36415; 36600; 62328; 80048; 80053; 81001; 82040; 82042; 82784; 82805; 82945; 83605; 83735; 83873; 83916; 84157; 85025; 85027; 85610; 85652; 85730; 86140; 86403; 86592; 86617; 87015; 87070; 87102; 87116; 87206; 87255; 87529; 87798; 88108; 89051; 94640; 96365; A9270; G0378; G0379